=== PATIENT | female | born 1940 | race Caucasian/White ===

== ENCOUNTER → 2016-11-05 | Outpatient (CLI) | payer BC ==
[~2016-11-05] MED LIST: ASPI-482 PO; ATOR20TA PO; GABA-586 PO; IRBE300T PO; TRAM1TAB4 PO; TRIA1CAP3 PO
--- NOTE | 2016-11-05 11:41 | KCIC ---
EXAM: Lumbar spine, 2 views. HISTORY: Pain. COMPARISON: MRI dated 09/27/2015 and radiographs dated 08/27/2014. FINDINGS: Frontal and lateral views of the lumbar spine are obtained. There is instrumented posterior spinal fusion at L4-S1. There is an intervertebral disc fusion device at L4-5. There is grade 1 anterolisthesis of L4 on L5, measuring 8 mm. There is grade 1 anterolisthesis of L3 on L4, measuring 3 mm. There is grade 1 anterolisthesis of L5 on S1, measuring 5 mm. There is degenerative endplate remodeling with disc space narrowing and facet arthropathy at L2-S1. There is dextroscoliosis. There is a 2.5 cm density within the left upper quadrant, possibly due to a peripherally calcified splenic artery aneurysm. There is a hiatal hernia. IMPRESSION: 1. Instrumented fusion at L4-S1, similar compared to the prior studies. 2. Lumbar scoliosis and grade 1 anterolisthesis of L3 on L4, L4 and L5 and L5 on S1, stable in appearance. 3. Multilevel degenerative change throughout the lumbar spine, similar compared to the prior study. 4. 2.5 cm density overlying the left upper quadrant. The possibility of a peripherally calcified splenic artery aneurysm is not excluded. Electronically signed by: Violeta Mckeon MD (11/05/2016 11:37 AM) [id number]
== END | disposition home or self-care (01) ==
LOC: KCIC 10:48
PROVIDERS: ATTEND Neurological Surgery
DX: M41.87 Other forms of scoliosis, lumbosacral region (principal)
CPT/HCPCS: 72100

== ENCOUNTER → 2016-11-23 | Outpatient (CLI) | payer BC, MEDICARE ==
--- NOTE | 2016-11-23 12:14 | RAD ---
MRI Lumbar Spine without contrast History: Bilateral leg radiculopathy, previous fusion, chronic pain, spasms Technique: Multiplanar, multi sequential noncontrast MR imaging was performed of the lumbar spine. Contrast: None Comparison: September 27, 2015 Findings: There is motion degradation for all image sequences even for repeated images. As stated for the previous exam, there apparently is transitional anatomy. Based on the same numbering as for the previous exam, there again has been posterolateral fusion at what is considered L3, L4, and L5. There is again grade 1 anterior spondylolisthesis at what is considered L2-3 and L3-4. Lumbar vertebral body stature is maintained. There is no significant marrow edema. 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 There is again moderate to severe degenerative disc disease at L4-5 and L1-2, to lesser degree at L3-4, minimally at L2-3. 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 Conus terminates at L1-2. There is a 1.1 cm T2 hyperintense lesion of the visualized left kidney, most likely a cyst. Not included the axial images, there is posterior protrusion at the T10-11 level with mild indentation upon the ventral thecal sac. There is bilateral T10-11 neural foramina compromise, likely increased on the left in the interval. L1-L2: There is again disc osteophyte complex and bulge, not convincingly changed. There is again mild narrowing of the far left lateral recess. There is again likely mild to moderate narrowing of the left neural foramen, right neural foramen adequate. L2-L3: There is again right laminectomy defect. Spinal canal and neural foramina are overall adequate. L3-L4: There are again laminectomy defects. Spinal canal is adequate. Neural foramina are not significantly narrowed. L4-L5: There are again laminectomy defects. Spinal canal is adequate. Neural foramina are not significantly narrowed. L5-S1: Spinal canal and neural foramina are adequate. Impression: 1. As stated for previous exam, there is apparently transitional anatomy of the lumbar spine. There again has been posterolateral fusion at what is considered L3, L4, L5. Findings of the lumbar spine have not significantly changed, no new significant lumbar spinal stenosis, mild narrowing of the far left lateral recess at L1-2. There is similar likely [id number] narrowing of the left L1-2 neural foramen. There is bilateral T10-11 neural foramina compromise likely increased on the left in the interval. There is multilevel degenerative disc disease. Electronically signed by: Clinton Chavez MD (11/23/2016 12:10 PM) [id number]
== END | disposition home or self-care (01) ==
LOC: MRI 10:43
PROVIDERS: ATTEND Neurological Surgery
DX: M51.16 Intervertebral disc disorders with radiculopathy, lumbar region (principal); M43.16 Spondylolisthesis, lumbar region; N28.89 Other specified disorders of kidney and ureter
CPT/HCPCS: 72148